=== PATIENT | female | born 1985 | race Caucasian/White ===

== ENCOUNTER 2016-05-13 02:30 | Observation (INO) | payer OTHER | END 2016-05-13 04:40 | disposition home or self-care (01) | LOC: FLD 02:30 | PROVIDERS: ADMIT Obstetrics & Gynecology; ATTEND Obstetrics & Gynecology | DX: O47.03 False labor before 37 completed weeks of gestation, third trimester (principal); Z3A.39 39 weeks gestation of pregnancy | CPT/HCPCS: 59025; G0378 ==

== ENCOUNTER 2016-05-13 11:35 | Inpatient (IN) | payer OTHER ==
[2016-05-13] MEDS ORDERED: LIDOCAINE 1% 30 ML SDV ONE (11:48)
[2016-05-13] MEDS ORDERED: OXYTOCIN 10 UNIT/ML VIAL ONE (11:48)
[2016-05-13] MEDS ORDERED: HYDROCORTISONE 0.5% CREAM TP PRN (12:12)
[2016-05-13] MEDS ORDERED: SIMETHICONE 80 MG TAB CHEW PO PRN (12:12)
[2016-05-13] MEDS ORDERED: HYDROCODONE/APAP 5/325 TAB PO PRN (12:12)
[2016-05-13] MEDS ORDERED: DOCUSATE SODIUM 100 MG CAP PO PRN (12:12)
--- NOTE | 2016-05-13 12:16 | OBPROC ---
- Labor and Delivery Onset of Contractions Date: 05/12/16 Onset of Contractions Time: 18:00 Onset of Contractions Type: Spontaneous Rupture of Membranes Date: 05/13/16 Rupture of Membranes Time: 11:35 Rupture of Membranes Type: Artificial Amniotic Fluid Color: Meconium Stained-Light Dilation Complete Time: 11:30 Delivery Type: Spontaneous Placenta Delivery Date: 05/13/16 Placenta Delivery Time: 11:45 Episiotomy/Laceration: 2nd Degree, Perineal Repair: 3-0, Vicryl EBL: 350 Complications: Nuchal Cord (x1; loose, slipped over perineum) - Medications Labor Augmentation/Induction Meds Used: None Anesthesia: Local (Specify) (1% Plain Lidocaine for repair) - Info Infant A Delivery Date: 05/13/16 Delivery Time: 11:41 Sex of : Female (Zaira Staley) Score (1 Min): 7 Score (5 Min): 8
[2016-05-13] MEDS: IBUPROFEN 600 MG TAB PO PRN ×3 (12:34→22:29)
--- NOTE | 2016-05-13 13:08 | GHP ---
[f rep st] HISTORY AND PHYSICAL DATE OF ADMISSION: 05/13/2016 ADMITTING DIAGNOSES: 1. Intrauterine at 39 and 5/7 weeks. 2. Active labor. HISTORY OF PRESENT ILLNESS: Patient is a 30-year-old, 3, para 1-0-1-1 at 39 and 5/7 weeks by last menstrual period 08/09/15, and confirmed by first trimester ultrasound. Patient presents to labor and delivery in active labor with contractions starting at 6:00 p.m. last night. Patient was seen in Labor and Delivery early this morning, found to be 1 cm dilated and sent home with labor precautions. The patient states contractions became closer, stronger and had some bloody mucus discharge. She also notes possible rupture of membranes. Good movement noted. The patient does have good care with [facility], presented in her 1st trimester at 8 weeks. is complicated by history of a LEEP. She did have a previous term delivery and cervical length stable in this . Patient also had a positive quad screen for Down syndrome, but did have a negative Verifi, and rubella was low- immune. Patient does have a history of asthma, and has not needed an inhaler during this . GBS is negative. PAST OB HISTORY: In 2011, she delivered a full-term female , 6 pounds 8 ounces at 41 weeks via vaginal delivery. It was complicated by oligo. In 2015, she had a missed AB at 6 weeks and required a D and C. PSYCH SOCIAL WORKER HISTORY: Age of menarche 11. Cycles are regular, every 28 days for 4 days. Last menstrual period 08/09/2015. Positive test 09/11/2015. Patient does have a history of abnormal Pap smears. She had a history of LEEP in 2004 secondary to LUCIANA 2. She denies any history of exposure to STDs and had negative chlamydia, gonorrhea cultures in this . MEDICAL HISTORY: Remarkable for asthma, history of ovarian cysts. PAST SURGICAL HISTORY: D and C, ankle surgeries, and breast surgery for fibrocystic nodules. FAMILY HISTORY: Mother, father, and brother with heart murmurs. Maternal grandmother and paternal aunt with breast cancer. Father of baby's family has [place]oroastrian ancestry. LABS: Patient is O positive, antibody negative. RPR nonreactive. Rubella low immune. Hepatitis B surface antigen negative. HIV negative. Quad screen was positive. Verifi negative. Pap smear normal. Chlamydia and gonorrhea culture's negative. H and H 11.3 and 34.2. 1-hour Glucola normal at 121. Hematocrit at 34 weeks 37. GBS negative. PHYSICAL EXAMINATION: VITAL SIGNS: On admission, vital signs are stable. Patient is afebrile. GENERAL: Alert and oriented x3. Well-nourished, well- developed female in moderate distress secondary to pain with contractions. PELVIS: On exam, found to be complete, +1 station, intact. heart tones category 1 tracing. On toco, she is regularly jose daniel. ASSESSMENT/PLAN: Patient is a 30-year-old 3, para 1-0-1-1 at 39 and 5/ 7 weeks, who presents in active labor. PLAN: 1. Admit to Labor and Delivery for expectant management. 2. GBS is negative. No prophylactic antibiotics needed. 3. Anticipate . /[id number]/MODL MTDD
[2016-05-14] MEDS: IBUPROFEN 600 MG TAB PO PRN ×2 (04:24→15:10)
[2016-05-14 09:37] VITALS: BP 111/74; PULSE 103; RESP 17; TEMP 97.1; O2SAT 96
--- NOTE | 2016-05-14 12:04 | OBPROG ---
OBG Progress Note Assessment/Plan: Assessment: s/p PPD # 1- pt is stable Plan: Continue routine pp care Plan for d/c home later today No Rx given Cont PNV Pelvic rest RTC in 4 and 6 weeks 05/14/16 12:01 Subjective: Pt seen and examined. Doing well with no complaints. Pt is OOB, gurpreet diet, voiding and passing flatus. No BM yet. Moderate lochia. without difficulty. Wants to go home later today. Objective: Temp Pulse Resp BP Pulse Ox 36.2 C 103 H 17 111/74 96 05/14/16 09:30 05/14/16 09:30 05/14/16 09:30 05/14/16 09:30 05/14/16 09:30 Uterine Position/Fundal Height: Umbilicus -2 Uterine Tone: Firm - Physical Exam General Appearance: WD/WN, alert, no apparent distress Respiratory: lungs clear, normal breath sounds Cardiac/Chest: regular rate, rhythm Abdomen: normal bowel sounds, non-tender, soft, flatus (+) Genitourinary: laceration (intact), lochia (moderate) Extremities: non-tender, normal inspection Neuro/Psych: alert, normal mood/affect, oriented x 3 ICD10 Worksheet Patient Problems: Problems Problem Status Onset (spontaneous vaginal delivery) Acute Active labor at term Acute
== END 2016-05-14 15:15 | disposition home or self-care (01) | DRG 775 ==
LOC: FLD 11:35 → FOB 14:56
PROVIDERS: ADMIT Obstetrics & Gynecology; ATTEND Obstetrics & Gynecology
DX: O69.82X0 Labor and delivery complicated by other cord entanglement, without compression, not applicable or unspecified (principal); Z37.0 Single live birth; O70.1 Second degree perineal laceration during delivery; Z3A.39 39 weeks gestation of pregnancy

== ENCOUNTER → 2018-07-12 | Outpatient (CLI) | payer OTHER | LOC: FIMAGING 07:26 | PROVIDERS: ATTEND Obstetrics & Gynecology | DX: O09.522 Supervision of elderly multigravida, second trimester (principal); Z3A.20 20 weeks gestation of pregnancy ==